=== PATIENT | female | born 1980 | race Asian ===

== ENCOUNTER 2019-02-02 02:40 | Emergency (ER) | payer OTHER ==
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
[2019-02-02] MEDS ORDERED: IBUPROFEN 800 MG TAB PO ONE (03:01)
[2019-02-02 03:55] VITALS: BP 111/62
== END 2019-02-02 03:55 ==
PROC: 2W3FX1Z Immobilization of Left Hand using Splint (ICD-10-PCS; principal; 2019-02-02)
DX: M25.522 Pain in left elbow (principal); W01.198A Fall on same level from slipping, tripping and stumbling with subsequent striking against other object, initial encounter
CPT/HCPCS: A4565